=== PATIENT | male | born 1970 | race Caucasian/White ===

== ENCOUNTER → 2016-06-05 | Outpatient (REF) ==
[~2016-06-05] MED LIST: ALVESCO160 MCG/Ac IH; COMBIVENT INH14.7 GM IH; FLOVENT; HCTZ 25MG TAB25 MG PO; HYDROCODONE/APAP; NAPROSYN500 MG PO; NORCO 325 MG-51 TAB PO; PERCOCET 325 MG1 TA2 PO; PROVENTIL0.09 MG/A1 IH; SINGULAIR 110 MG/TAB PO; ZITHROMAX 250M250 MG PO; ZYRTEC 10MG10 MG PO
== END ==
LOC: WSOH 08:54
DX: Z02.1 Encounter for pre-employment examination (principal)

== ENCOUNTER 2016-10-09 16:23 | Emergency (ER) | payer SELFPAY ==
[~2016-10-09] VITALS: Ht 175.3 cm; Wt 74.5 kg
[~2016-10-09 16:23] MED LIST changes: -HCTZ 25MG TAB25 MG PO
[2016-10-09 16:25] VITALS: TEMP 98.3
[2016-10-09 16:55] LABS: BASO % 0.5 % (0.0-2.0); GRAN # 5.6 (1.4-6.5); GRAN % 67.5 % (42.2-75.2); HEMATOCRIT 43.8 % (42.0-52.0); HEMOGLOBIN 14.6 g/dl (13.5-18.0); LYMPH # 1.9 (1.2-3.4); LYMPH % 23.5 % (20.0-51.0); MEAN CELL VOLUME 87 fl (80.0-100.0); MEAN CORPUSCULAR HEMOGLOBIN 29 pg (27.0-31.0); MEAN CORPUSCULAR HGB CONC 33 g/dl (33.0-37.0); MONO # 0.7 (0.1-0.6); MONO % 8.3 % (1.7-9.3); PLATELET COUNT 330 K/mm3 (130-400); RED BLOOD COUNT 5.06 M/mm3 (4.20-5.60); WHITE BLOOD COUNT 8.2 K/mm3 (4.8-10.8)
[2016-10-09 17:07] LABS: ADJUSTED CALCIUM 9.4 mg/dL (8.4-10.2); ALANINE AMINOTRANSFERASE 31 U/L (21-72); ALKALINE PHOSPHATASE 104 U/L (50-136); ANION GAP 14 mmol/L (7-16); BILIRUBIN,TOTAL 0.6 mg/dL (0.0-1.0); BLOOD UREA NITROGEN 11 mg/dL (9-20); CALCIUM 10.2 mg/dL (8.4-10.2); CARBON DIOXIDE 23 mmol/L (22-30); CHLORIDE 103 mmol/L (98-107); CREATININE, serum 1.35 mg/dL (0.66-1.25); GLUCOSE 103 mg/dL (74-106); POTASSIUM 3.8 mmol/L (3.4-5.0); SODIUM 140 mmol/L (137-145); TOTAL PROTEIN 8.2 gm/dL (6.4-8.2)
[2016-10-09 17:19] LABS: TROPONIN-I < 0.012 ng/mL (0.000-0.034)
[2016-10-09 17:26] VITALS: PULSE 90
[2016-10-09] MEDS ORDERED: HCTZ 25MG TAB25 MG PO (18:17)
[2016-10-09 18:26] VITALS: BP 149/108
== END 2016-10-09 18:46 | disposition home or self-care (01) ==
LOC: COL.ER 16:23
PROVIDERS: Emergency Medicine
DX: R07.89 Other chest pain (principal); I10 Essential (primary) hypertension
CPT/HCPCS: J7030

== ENCOUNTER 2017-11-20 23:42 | Emergency (ER) | payer SELFPAY ==
[~2017-11-20] VITALS: Ht 175.3 cm; Wt 70.5 kg
[~2017-11-20 23:42] MED LIST changes: +HCTZ 25MG TAB25 MG PO
[2017-11-21] MEDS ORDERED: DULERA1 ARO IH ×2 (00:27→00:28)
[2017-11-21 02:19] VITALS: BP 122/81; PULSE 94; TEMP 99
== END 2017-11-21 03:12 | disposition home or self-care (01) ==
LOC: COL.ER 23:42
DX: J45.901 Unspecified asthma with (acute) exacerbation (principal)
CPT/HCPCS: J7512

== ENCOUNTER 2017-12-14 11:01 | Emergency (ER) | payer OTHER ==
[~2017-12-14] VITALS: Ht 175.3 cm; Wt 65.9 kg
[~2017-12-14 11:01] MED LIST changes: +DULERA1 ARO IH
[2017-12-14 11:13] VITALS: BP 159/108; TEMP 99
[2017-12-14] MEDS ORDERED: NORCO 325 MG-51 TAB PO (12:10)
[2017-12-14 12:28] VITALS: PULSE 103
== END 2017-12-14 12:28 | disposition home or self-care (01) ==
LOC: COL.ER 11:01
DX: S40.012A Contusion of left shoulder, initial encounter (principal); W10.8XXA Fall (on) (from) other stairs and steps, initial encounter; J45.909 Unspecified asthma, uncomplicated

== ENCOUNTER 2018-01-10 20:12 | Emergency (ER) | payer OTHER ==
[~2018-01-10] VITALS: Ht 175.3 cm; Wt 75.0 kg
[2018-01-10 20:18] VITALS: TEMP 98.4
[2018-01-10 20:54] LABS: BASO # 0.1 (0.0-0.2); BASO % 0.8 % (0.0-2.0); EOS % 0.4 % (0-4.0); GRAN # 5.3 (1.4-6.5); GRAN % 67.6 % (42.2-75.2); HEMATOCRIT 42.2 % (42.0-52.0); HEMOGLOBIN 14.1 g/dl (13.5-18.0); INR 0.9 (0.8-3.0); LYMPH # 2.1 (1.2-3.4); MEAN CELL VOLUME 87 fl (80.0-100.0); MEAN CORPUSCULAR HEMOGLOBIN 29 pg (27.0-31.0); MEAN CORPUSCULAR HGB CONC 33 g/dl (33.0-37.0); MEAN PLATELET VOLUME 9.3 fl (7.4-10.4); MONO # 0.4 (0.1-0.6); MONO % 5.1 % (1.7-9.3); PLATELET COUNT 290 K/mm3 (130-400); PROTHROMBIN TIME 10.3 SECONDS (9.7-12.8); RED BLOOD COUNT 4.85 M/mm3 (4.20-5.60); REDCELL DISTRIBUTION WIDTH-CV 12.7 % (11.5-14.5)
[2018-01-10 20:57] LABS: ALANINE AMINOTRANSFERASE 26 U/L (21-72); ALBUMIN 4.2 gm/dL (3.5-5.0); ALKALINE PHOSPHATASE 84 U/L (50-136); ANION GAP 5 mmol/L (7-16); AST,SGOT 18 U/L (15-37); BILIRUBIN,TOTAL 0.2 mg/dL (0.0-1.0); BLOOD UREA NITROGEN 13 mg/dL (9-20); CALCIUM 9.5 mg/dL (8.4-10.2); CARBON DIOXIDE 30 mmol/L (22-30); CHLORIDE 108 mmol/L (98-107); CREATININE, serum 1.18 mg/dL (0.66-1.25); GLUCOSE 102 mg/dL (74-106); POTASSIUM 4.3 mmol/L (3.4-5.0); SODIUM 142 mmol/L (137-145); TOTAL PROTEIN 7.1 gm/dL (6.4-8.2)
[2018-01-10 20:59] LABS: D-DIMER < 200.00 ng/mLDDu (200-230)
[2018-01-10 21:12] LABS: TROPONIN-I < 0.012 ng/mL (0.000-0.034)
[2018-01-10 22:08] VITALS: BP 134/7; PULSE 98
== END 2018-01-10 22:10 | disposition left against medical advice (07) ==
LOC: COL.ER 20:12
PROVIDERS: Emergency Medicine
DX: J40 Bronchitis, not specified as acute or chronic (principal)
CPT/HCPCS: J2930; J7030

== ENCOUNTER 2018-09-13 17:57 | Emergency (ER) | payer OTHER ==
[~2018-09-13] VITALS: Ht 175.3 cm; Wt 65.9 kg
[2018-09-13 18:28] VITALS: TEMP 96.8
[2018-09-13] MEDS ORDERED: NORCO 325 MG-51 TAB PO (20:11)
[2018-09-13 20:51] VITALS: BP 106/79; PULSE 100
== END 2018-09-13 20:51 | disposition home or self-care (01) ==
LOC: COL.ER 17:57
DX: S52.612A Displaced fracture of left ulna styloid process, initial encounter for closed fracture (principal); S62.002A Unspecified fracture of navicular [scaphoid] bone of left wrist, initial encounter for closed fracture; S52.502A Unspecified fracture of the lower end of left radius, initial encounter for closed fracture; F17.210 Nicotine dependence, cigarettes, uncomplicated; V29.9XXA Motorcycle rider (driver) (passenger) injured in unspecified traffic accident, initial encounter; Y93.55 Activity, bike riding; Y92.410 Unspecified street and highway as the place of occurrence of the external cause
CPT/HCPCS: Q4021; Q4050

== ENCOUNTER 2019-02-22 02:07 | Emergency (ER) | payer SELFPAY ==
[~2019-02-22] VITALS: Ht 175.3 cm; Wt 70.5 kg
[2019-02-22 02:10] VITALS: BP 150/110; TEMP 97.9
[2019-02-22 02:40] LABS: BASO % 0.4 % (0.0-2.0); GRAN # 5.3 (1.4-6.5); GRAN % 73.1 % (42.2-75.2); HEMATOCRIT 39.3 % (42.0-52.0); HEMOGLOBIN 12.8 g/dl (13.5-18.0); LYMPH # 1.4 (1.2-3.4); LYMPH % 19.6 % (20.0-51.0); MEAN CELL VOLUME 91 fl (80.0-100.0); MEAN CORPUSCULAR HEMOGLOBIN 30 pg (27.0-31.0); MEAN CORPUSCULAR HGB CONC 33 g/dl (33.0-37.0); MONO # 0.4 (0.1-0.6); MONO % 5.9 % (1.7-9.3); PLATELET COUNT 261 K/mm3 (130-400); RED BLOOD COUNT 4.34 M/mm3 (4.20-5.60); REDCELL DISTRIBUTION WIDTH-CV 12.9 % (11.5-14.5)
[2019-02-22 02:49] LABS: ALANINE AMINOTRANSFERASE 16 U/L (21-72); ALBUMIN 4.3 gm/dL (3.5-5.0); ALCOHOL(ethanol),MEDICAL 188 mg/dL; ALKALINE PHOSPHATASE 71 U/L (50-136); ANION GAP 11 mmol/L (7-16); AST,SGOT 26 U/L (15-37); BILIRUBIN,TOTAL < 0.1 mg/dL (0.0-1.0); BLOOD UREA NITROGEN 17 mg/dL (9-20); CALCIUM 8.6 mg/dL (8.4-10.2); CARBON DIOXIDE 23 mmol/L (22-30); CHLORIDE 109 mmol/L (98-107); CREATININE, serum 0.98 (0.66-1.25); GLUCOSE 111 mg/dL (74-106); POTASSIUM 4.3 mmol/L (3.4-5.0); SODIUM 143 mmol/L (137-145); TOTAL PROTEIN 7.1 gm/dL (6.4-8.2)
[2019-02-22 03:01] LABS: COLLECTION METHOD CLEAN CATCH
[2019-02-22 03:06] LABS: PH 5 (5-8); SQUAMOUS EPITHELIAL None Seen /hpf; URINE APPEARANCE Clear; URINE BACTERIA None Seen /hpf; URINE BILIRUBIN Negative (NEGATIVE); URINE BLOOD Negative (NEGATIVE); URINE COLOR Straw; URINE GLUCOSE Negative (NEGATIVE); URINE KETONE Negative (NEGATIVE); URINE LEUKOCYTE ESTERASE Negative (NEGATIVE); URINE NITRATE Negative (NEGATIVE); URINE PROTEIN(semi-quant) Negative (NEGATIVE); URINE RBC 0-2 /hpf; URINE UROBILINOGEN Negative (NEGATIVE)
[2019-02-22 04:25] VITALS: PULSE 98
[2019-02-22 06:49] LABS: TRICYCLIC ANTIDEPRESS URINE NEGATIVE
== END 2019-02-22 04:25 | disposition short-term general hospital (02) ==
LOC: COL.ER 02:07
PROVIDERS: Emergency Medicine
DX: S31.119A Laceration without foreign body of abdominal wall, unspecified quadrant without penetration into peritoneal cavity, initial encounter (principal); S36.039A Unspecified laceration of spleen, initial encounter; Z23 Encounter for immunization; W45.8XXA Other foreign body or object entering through skin, initial encounter; Y92.410 Unspecified street and highway as the place of occurrence of the external cause
CPT/HCPCS: J0690; J2060; J2405; J3010; J7030; Q9967

== ENCOUNTER 2019-02-28 22:22 | Emergency (ER) | payer SELFPAY ==
[~2019-02-28] VITALS: Ht 175.3 cm; Wt 65.9 kg
[2019-02-28 22:30] VITALS: BP 147/88; TEMP 98.3
[2019-02-28 22:59] LABS: BASO % 0.5 % (0.0-2.0); EOS % 0.1 % (0-4.0); GRAN % 70.2 % (42.2-75.2); LYMPH # 1.9 (1.2-3.4); LYMPH % 21.9 % (20.0-51.0); MEAN CELL VOLUME 89 fl (80.0-100.0); MEAN CORPUSCULAR HEMOGLOBIN 29 pg (27.0-31.0); MEAN CORPUSCULAR HGB CONC 33 g/dl (33.0-37.0); MEAN PLATELET VOLUME 8.9 fl (7.4-10.4); MONO # 0.6 (0.1-0.6); MONO % 6.9 % (1.7-9.3); PLATELET COUNT 359 K/mm3 (130-400); RED BLOOD COUNT 4.12 M/mm3 (4.20-5.60); REDCELL DISTRIBUTION WIDTH-CV 12.4 % (11.5-14.5)
[2019-02-28 23:09] LABS: CALCIUM 8.8 mg/dL (8.4-10.2); CREATININE, serum 0.93 (0.66-1.25); POTASSIUM 3.9 mmol/L (3.4-5.0)
[2019-02-28 23:18] LABS: HEMATOCRIT 36.6 % (42.0-52.0)
[2019-02-28] MEDS ORDERED: NORCO 325 MG-51 TAB PO (23:57)
[2019-03-01 00:31] LABS: COLLECTION METHOD CLEAN CATCH
[2019-03-01 00:39] VITALS: PULSE 92
[2019-03-01 00:39] LABS: MUCOUS Present /lpf; PH 6 (5-8); SQUAMOUS EPITHELIAL None Seen /hpf; URINE APPEARANCE Clear; URINE BACTERIA None Seen /hpf; URINE BILIRUBIN Negative (NEGATIVE); URINE BLOOD Negative (NEGATIVE); URINE COLOR Yellow; URINE GLUCOSE Negative (NEGATIVE); URINE KETONE Negative (NEGATIVE); URINE LEUKOCYTE ESTERASE Negative (NEGATIVE); URINE NITRATE Negative (NEGATIVE); URINE PROTEIN(semi-quant) Negative (NEGATIVE); URINE RBC 0-2 /hpf
== END 2019-03-01 00:40 | disposition home or self-care (01) ==
LOC: COL.ER 22:22
PROVIDERS: Emergency Medicine
DX: R07.81 Pleurodynia (principal); G89.29 Other chronic pain; F17.210 Nicotine dependence, cigarettes, uncomplicated
CPT/HCPCS: J1170; J1885; J7030

== ENCOUNTER 2019-09-16 14:52 | Emergency (ER) | payer OTHER ==
[~2019-09-16] VITALS: Ht 175.3 cm; Wt 72.7 kg
[2019-09-16 15:00] VITALS: TEMP 97.5
[2019-09-16] MEDS ORDERED: NORCO 325 MG-51 TAB PO (15:23)
[2019-09-16 16:36] VITALS: BP 137/96; PULSE 79
== END 2019-09-16 16:33 | disposition home or self-care (01) ==
LOC: COL.ER 14:52
DX: S70.11XA Contusion of right thigh, initial encounter (principal); Y04.0XXA Assault by unarmed brawl or fight, initial encounter

== ENCOUNTER 2023-10-29 19:00 | Emergency (ER) | payer OTHER ==
[~2023-10-29] VITALS: Ht 175.3 cm; Wt 75.0 kg
[2023-10-29 19:32] VITALS: TEMP 97.7
[2023-10-29 22:36] VITALS: BP 142/90; PULSE 97
== END 2023-10-29 22:36 | disposition home or self-care (01) ==
LOC: COL.ER 19:00
DX: S81.812A Laceration without foreign body, left lower leg, initial encounter (principal); W22.8XXA Striking against or struck by other objects, initial encounter; Y92.480 Sidewalk as the place of occurrence of the external cause

== ENCOUNTER 2023-12-17 00:21 | Emergency (ER) | payer OTHER ==
[~2023-12-17] VITALS: Ht 175.3 cm; Wt 76.8 kg
[2023-12-17 00:27] VITALS: TEMP 98.2
[2023-12-17] MEDS ORDERED: predniSONE 20 MG TAB PO ONE ×3 (00:45→02:15)
[2023-12-17] MEDS ORDERED: Albuterol/Ipratropium 3 MG-0.5 MG/3 ML Neb Soln IH SCH (00:45)
[2023-12-17] MEDS ORDERED: Albuterol 0.083% Neb Soln 2.5 MG/3 ML UD IH ONE (01:45)
[2023-12-17] MEDS ORDERED: Albuterol 90 MCG/PUFF 8 GM MDI IH ONE (02:00)
[2023-12-17 02:17] VITALS: BP 111/76; PULSE 103
== END 2023-12-17 02:17 | disposition home or self-care (01) ==
LOC: COL.ER 00:21
DX: J45.901 Unspecified asthma with (acute) exacerbation (principal)
CPT/HCPCS: J7512